=== PATIENT | female | born 1995 | race Caucasian/White ===

== ENCOUNTER 2017-03-17 17:09 | Emergency (ER) | payer OTHER ==
[2017-03-17 17:56] VITALS: TEMP 96.7
--- NOTE | 2017-03-17 18:44 | RAD ---
EXAM: Ribs,Left 3 Views CLINICAL INDICATION: 21-year-old female with rib pain after fall. COMPARISON: None. TECHNIQUE: Three views of the left-sided ribs were obtained in multiple projection. FINDINGS: There is no fracture or dislocation. The joint spaces are preserved. No soft tissue abnormalities are seen. IMPRESSION: No acute radiographic abnormality. Electronically signed by: Munira Dominguez MD 03/17/2017 6:43 PM CDT Workstation: [id number]
[2017-03-17 18:48] VITALS: BP 109/68; O2SAT 100
[2017-03-17] MEDS ORDERED: ACETAMINOPHEN-CAFF-BUTALBITAL 1 EA TAB PO ONE (18:53)
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
== END 2017-03-17 20:26 | disposition home or self-care (01) ==
LOC: ER 17:09
DX: S20.212A Contusion of left front wall of thorax, initial encounter (principal); S06.0X0A Concussion without loss of consciousness, initial encounter; W19.XXXA Unspecified fall, initial encounter; Z88.3 Allergy status to other anti-infective agents; Z79.899 Other long term (current) drug therapy; Y93.16 Activity, rowing, canoeing, kayaking, rafting and tubing; Y92.828 Other wilderness area as the place of occurrence of the external cause